=== PATIENT | female | born 1985 | race African-American/Black ===

== ENCOUNTER 2019-04-16 15:25 | Emergency (ER) | payer SELFPAY ==
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
[2019-04-16 15:30] VITALS: BP 134/95; PULSE 111; RESP 20; TEMP 36.7; O2SAT 96
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
[2019-04-16 18:03] VITALS: BP 122/91; PULSE 106; RESP 20; O2SAT 97
== END 2019-04-16 18:03 | disposition home or self-care (01) ==
PROVIDERS: Emergency Provider Family Medicine
DX: S13.4XXA Sprain of ligaments of cervical spine, initial encounter (principal); V89.2XXA Person injured in unspecified motor-vehicle accident, traffic, initial encounter
CPT/HCPCS: 71046; 72040; 72125; 73030; 99282; 99284